=== PATIENT | male | born 1975 | race Hispanic/Latino ===

== ENCOUNTER 2024-04-04 21:37 | Emergency (ER) | payer SELFPAY ==
[~2024-04-04] VITALS: Ht 172.7 cm; Wt 102.1 kg
[2024-04-04 22:09] VITALS: PULSE 89; RESP 18; TEMP 98.6
[2024-04-05] MEDS ORDERED: VENTOLIN HFA18 GM INH (00:44)
[2024-04-05] MEDS ORDERED: CETIRIZINE HCL10 MG PO (00:45)
[2024-04-05] MEDS ORDERED: HYDROXYZINE HCL25 MG PO (00:54)
[2024-04-05 01:08] VITALS: BP 122/78; PULSE 89; RESP 18; TEMP 98.6; O2SAT 100
== END 2024-04-05 01:08 | disposition home or self-care (01) ==
LOC: FSED 23:06
DX: R06.00 Dyspnea, unspecified (principal); J98.01 Acute bronchospasm; F41.1 Generalized anxiety disorder; F41.0 Panic disorder [episodic paroxysmal anxiety]; R09.82 Postnasal drip; Z11.52 Encounter for screening for COVID-19
CPT/HCPCS: 0223U; 71046; 87400; 99283